=== PATIENT | female | born 1990 | race Caucasian/White ===

== ENCOUNTER 2020-02-27 19:26 | Emergency (ER) | payer BC ==
[2020-02-27 19:32] VITALS: BP 146/70; PULSE 82; RESP 18; TEMP 97.9
[2020-02-27] MEDS ORDERED: DIPH,PERTUS(ACELL)TETVAC-LF 0.5 ML VIAL IM ONE (20:09)
--- NOTE | 2020-02-27 20:09 | ED ---
General Adult HPI - General Chief complaint: Wound/Laceration Stated complaint: Facial Lac, Cat Scratched Time Seen by Provider: 02/27/20 19:46 Source: patient, RN notes reviewed, old records reviewed Mode of arrival: ambulatory Limitations: no limitations - History of Present Illness Initial comments: 29-year-old female patient to ED for evaluation. Patient reports that her cat was being chased by the dogs and jumped landing on her face with claws outstretched and scraped the right upper eyelid region. No contact in that eye. No eye complaints. The patient all that shots. Patient tetanus needs to be updated. Denies any other complaints. Systemic: Pt denies fatigue, fever/chills, rash. Pt denies weakness, night sweats, weight loss. Neuro: Pt denies headache, visual disturbances, syncope or pre-syncope. HEENT: Pt denies ocular discharge or irritation, otalgia, rhinorrhea, pharyngitis or notable lymphadenopathy. Cardiopulmonary: Pt denies chest pain, SOB, heart palpitations, dyspnea on exertion. Abdominal/GI: Pt denies abdominal pain, n/v/d. : Pt denies dysuria, burning w/ urination, frequency/urgency. Denies new onset urinary or bowel incontinence. MSK: Pt denies myalgia, loss of strength or function in extremities. Neuro: Pt denies new onset weakness, paresthesias. - Related Data Allergies Allergy/AdvReac Type Severity Reaction Status Date / Time amoxicillin Allergy Rash/Hives Verified 02/27/20 19:31 Review of Systems ROS Statement: Those systems with pertinent positive or pertinent negative responses have been documented in the HPI. ROS Other: All systems not noted in ROS Statement are negative. Past Medical History Past Medical History: No Reported History History of Any Multi-Drug Resistant Organisms: None Reported Past Surgical History: No Surgical Hx Reported Past Psychological History: No Psychological Hx Reported Smoking Status: Never smoker Past Alcohol Use History: None Reported Past Drug Use History: None Reported General Exam - General Exam Comments Initial Comments: Constitutional: NAD, AOX3, Pt has pleasant affect. HEENT: NC/AT, trachea midline, neck supple, no lymphadenopathy. External ears appear normal, without discharge. Mucous membranes moist. Eyes PERRLA, EOM intact. There is no scleral icterus. No pallor noted. Cardiopulmonary: RRR, no murmurs, rubs or gallops, no JVD noted. Lungs CTAB in anterior and posterior oro. No peripheral edema. Abdominal exam: Abdomen soft and non-distended. Abdomen non-tender to palpation in all 4 quadrants. Bowel sounds active in LLQ. No hepatosplenomegaly. No ecchymosis Neuro: CN II-XII grossly intact. No nuchal rigidity. No raccon eyes, no dodd sign, no hemotympanum. No cervical spinal tenderness. MSK: Full active ROM in upper and lower extremities. 2 cm superficial scratch to right upper eyelid vigorously irrigated, approximated with 4 steri strips. No eye injection. Limitations: no limitations Course Vital Signs 02/27/20 19:29 Temperature 97.9 F Pulse Rate 82 Respiratory 18 Rate Blood Pressure 146/70 O2 Sat by Pulse 98 Oximetry Medical Decision Making - Medical Decision Making 29-year-old female patient ED for evaluation of scratch to the eyelid. There is a irrigated approximated loosely with 4 steri strips, patient declined sutures. I also discussed antibiotics which patient would like to decline as well. Tetanus updated. Discharged with outpatient follow up and return precautions. Case discussed with Dr. Matos. Disposition Clinical Impression: Laceration Disposition: HOME SELF-CARE Condition: Stable Instructions (If sedation given, give patient instructions): Laceration (ED) Additional Instructions: Remove steri strips in 5 days if they do not fall off on their own. Watch closely for signs of infection. Return to ED with any worsening symptoms. Please monitor for signs and symptoms of infection including: redness, warmth, drainage, discharge. Is patient prescribed a controlled substance at d/c from ED?: No Referrals: None,Stated [Primary Care Provider] - 1-2 days Darnell Godwin [STAFF PHYSICIAN] - 1-2 days Kaur Araiza MD [REFERRING] - 1-2 days
== END 2020-02-27 20:24 | disposition home or self-care (01) ==
LOC: EC 19:26
DX: S01.111A Laceration without foreign body of right eyelid and periocular area, initial encounter (principal); Z88.0 Allergy status to penicillin; Z23 Encounter for immunization; W55.03XA Scratched by cat, initial encounter
CPT/HCPCS: 90471; 90715; 99283